=== PATIENT | male | born 1980 | race Caucasian/White ===

== ENCOUNTER 2016-12-02 19:37 | Observation (INO) ==
--- NOTE | 2016-12-02 20:37 | Emergency Department Note ---
Disposition Clinical Impression: Lower GI bleed Disposition: Admitted As Inpatient Condition: Good Time of Disposition: 23:49 GI Bleed HPI - General Chief complaint: ED GI Bleed Stated complaint: "Blood in Stool" Time Seen by Provider: 12/02/16 19:49 Source: patient Mode of arrival: ambulatory Limitations: no limitations Nursing Notes Reviewed: Yes Vital Signs Reviewed: Yes - History of Present Illness HPI Narrative: Patient is a 35-year-old male with no significant past medical history. He presents today due to GI bleeding. Patient had a routine colonoscopy [address] Carter as a routine screening. He had 3 polyps removed. Patient states that around 2 hours prior to arrival, he began having bright red liquid blood all movements. He has had 3 prior to arrival. He came to the ED for further evaluation. On the way in, he started having some mild shortness of breath felt like his heart was racing. Denies any other chest pain, nausea, vomiting, abdominal pain. Blood pressure stable on presentation. Patient also admits to taking ibuprofen recently due to tooth pain. However, he denies being on any blood thinners. - Related Data Home Medications Medication Instructions Recorded Confirmed Omeprazole [PriLOSEC] 20 mg PO DAILY 11/27/16 11/27/16 Allergies Allergy/AdvReac Type Severity Reaction Status Date / Time No Known Allergies Allergy Verified 12/02/16 19:43 Constitutional: Denies: fever Cardiovascular: Denies: chest pain, palpitations, dyspnea on exertion Respiratory: Denies: cough, dyspnea, wheezes Gastrointestinal: Reports: hematochezia. Denies: abdominal pain, nausea, vomiting Genitourinary: Denies: urgency, dysuria Musculoskeletal: Denies: back pain Integumentary: Denies: rash Neurological: Denies: headache, weakness, numbness, paresthesias Past Medical History - Past Medical History Attestation: Yes The following information was validated with the patient. Source: patient Medical history: Reports: GERD Surgical history: Reports: other Psychiatric history: Reports: no psych history - Social History Smoking Status: Never smoker Alcohol use: Reports: none Drug use: Reports: marijuana Physical Exam - General Limitations: no limitations General appearance: alert, in no apparent distress - Head Head exam: atraumatic, normocephalic, normal inspection - Eye Eye exam: Present: normal appearance, PERRL, EOMI - ENT ENT exam: normal exam, normal oropharynx, mucous membranes moist - Neck Neck exam: Present: normal inspection, full ROM, trachea midline - Chest Chest inspection: Present: normal inspection, symmetric chest wall rise - Respiratory Respiratory exam: Present: normal lung sounds bilaterally - Cardiovascular Cardiovascular exam: Present: normal rhythm, tachycardia, normal heart sounds - Abdominal Exam Abdominal exam: Present: soft, Non-Tender. Absent: tenderness, distention, guarding, rebound, rigidity - Extremities Exam Extremities exam: Present: normal inspection, full ROM. Absent: tenderness, pedal edema - Back Exam Back exam: Present: normal inspection, full ROM. Absent: tenderness - Neurological Exam Neurological exam: Present: alert, oriented X3 - Psychiatric Psychiatric exam: Present: normal affect, normal mood - Skin Skin exam: Present: warm, dry, intact, normal color Course Course Narrative: Patient was hypertensive on presentation. Also tachycardic around 115. The rest of vitals were within normal limits. Abdominal exam was benign. Will order CBC, BMP, type and screen, and CT of the abdomen and pelvis. After results, will contact Dr. Carter. 23:47 hemoglobin stable. BMP within normal limits. CT scan showed prominent wall thickening of the rectum. Dr. Carter was contacted. Vitals, presentation, history, results all discussed. He will perform sigmoidoscopy in the morning. Recommended admission for observation. Patient was accepted for observation by Dr. Rhoades. Continues to have stable vitals. NPO after midngith. Fluids started. Abdomen/Pelvis CT 12/02/16 20:18 IMPRESSION: Prominent wall thickening involving much of the rectum with heterogeneous attenuation along the taylor. No adjacent inflammatory change. No adenopathy. Findings may be infectious or inflammatory in etiology however recommend direct visualization with scope to exclude underlying mass. Erosions at the SI joints bilaterally. D/ / Tea Bernal MD / Tea Bernal MD Interpreting Provider: Tea Bernal MD Vital Signs Temperature 98 F 12/02/16 19:38 Pulse Rate 123 12/02/16 19:38 Respiratory Rate 20 12/02/16 19:38 Blood Pressure 151/90 12/02/16 19:38 O2 Sat by Pulse Oximetry 94 12/02/16 19:38 Temperature 98 F 12/02/16 19:38 Pulse Rate 111 12/02/16 23:30 Respiratory Rate 16 12/02/16 23:38 Blood Pressure 130/92 12/02/16 23:38 O2 Sat by Pulse Oximetry 95 12/02/16 23:30 Oxygen Delivery Oxygen Delivery Room Air GI Bleed - [facility] Narrative Medical decision making narrative: Patient was hypertensive on presentation. Also tachycardic around 115. The rest of vitals were within normal limits. Abdominal exam was benign. Will order CBC, BMP and CT of the abdomen and pelvis. After results, will contact Dr. Carter. 23:47 hemoglobin stable. BMP within normal limits. CT scan showed prominent wall thickening of the rectum. Dr. Carter was contacted. Vitals, presentation, history, results all discussed. He will perform sigmoidoscopy in the morning. Recommended admission for observation. Patient was accepted for observation by Dr. Rhoades. Continues to have stable vitals. NPO after midngith. Fluids started. - Medical Records Medical records reviewed: Yes I reviewed the patient's medical records. - Lab Data Lab results reviewed: Yes I reviewed the patient's lab results. Result diagrams: 12/02/16 20:43 12/02/16 20:43 Lab Results 12/02/16 12/02/16 12/02/16 Range/Units 20:43 20:43 22:46 WBC 10.1 (4.3-11.1) K/mcL RBC 4.88 (4.19-5.50) M/mcL Hgb 12.7 L (12.9-16.9) g/dL Hct 39.6 (37.5-50.1) % MCV 81.1 L (83.0-100.0) fL MCH 26.0 L (28.0-33.3) pg MCHC 32.1 (31.6-35.5) g/dL RDW 14.3 (11.5-14.5) % Plt Count 284 (140-400) K/mcL MPV 10.7 (9.4-12.4) fL Immature Gran % 0.3 (0-4) % Seg Neutrophils % 64.9 % Lymphocytes % 22.6 % Monocytes % 7.9 % Eosinophils % 3.6 % Basophils % 0.7 % Neutrophils # 6.6 (1.6-8.9) K/mcL Lymphocytes # 2.3 (0.6-4.6) K/mcL Monocytes # 0.8 (0.0-1.3) K/mcL Eosinophils # 0.4 (0.0-0.6) K/mcL Basophils # 0.1 (0.0-0.2) K/mcL Sodium 141 (136-145) mEq/L Potassium 3.8 (3.5-4.5) mEq/L Chloride 108 (98-109) mEq/L Carbon Dioxide 20 (19-29) mEq/L BUN 18 (8-26) mg/dL Creatinine 0.88 (0.72-1.25) mg/dL Est GFR ( Amer) > 60 (> 60) Est GFR (Non-Af Amer) > 60 (> 60) BUN/Creatinine Ratio 20 (6-26) Glucose 79 (70-99) mg/dL Calculated Osmolality 293 (280-300) Calcium 9.2 (8.6-10.8) mg/dL Blood Type A POSITIVE Antibody Screen NEGATIVE - Radiology Data Radiology results reviewed: Yes I reviewed the patient's radiology results. Abdomen/Pelvis CT 12/02/16 20:18 IMPRESSION: Prominent wall thickening involving much of the rectum with heterogeneous attenuation along the taylor. No adjacent inflammatory change. No adenopathy. Findings may be infectious or inflammatory in etiology however recommend direct visualization with scope to exclude underlying mass. Erosions at the SI joints bilaterally. D/ / Tea Bernal MD / Tea Bernal MD Interpreting Provider: Tea Bernal MD eck - Sera Situation: Demographics, MOA Background: Presenting Complaint, Relevant PMH, Meds, & Allergies Assessment: Vital Signs, Course and respsone to treatment, Exam Concerns, Patient/Family Expectation, Pertinant Lab Results, Outstanding Labs Recommendation: Barrier(s) to disposition, Recommendation based on pending studies, treatments, or consults [email or web address] Report Given to: Dr. santhosh Zamora Repor Time: 23:50 Attestation Statement - Attestation Attestation: I examined this patient and my medical decision-making was reviewed with the SERVICE CASHIER/PA/Advanced Practice Nurse/Resident Physician. I agree with the documented findings, disposition and treatment plan as described except to the extent set forth below.
[2016-12-02 20:52] LABS: Hematocrit 39.6 % (37.5-50.1); Hemoglobin 12.7 g/dL (12.9-16.9); Immature Granulocytes % 0.3 % (0-4); Lymphocytes % 22.6 %; Mean Corpuscular HGB Conc 32.1 g/dL (31.6-35.5); Mean Corpuscular Volume 81.1 fL (83.0-100.0); Mean Platelet Volume 10.7 fL (9.4-12.4); Platelet Count 284 K/mcL (140-400); Red Blood Count 4.88 M/mcL (4.19-5.50); Red Cell Distribution Width 14.3 % (11.5-14.5); Segmented Neutrophils % 64.9 %
[2016-12-02 20:53] LABS: Basophils # 0.1 K/mcL (0.0-0.2); Basophils % 0.7 %; Eosinophils # 0.4 K/mcL (0.0-0.6); Eosinophils % 3.6 %; Lymphocytes # 2.3 K/mcL (0.6-4.6); Monocytes # 0.8 K/mcL (0.0-1.3); Monocytes % 7.9 %; Neutrophils # 6.6 K/mcL (1.6-8.9)
[2016-12-02 21:02] LABS: BUN/Creatinine Ratio 20 (6-26); Blood Urea Nitrogen 18 mg/dL (8-26); Calcium 9.2 mg/dL (8.6-10.8); Carbon Dioxide 20 mEq/L (19-29); Chloride 108 mEq/L (98-109); Glucose 79 mg/dL (70-99); Osmolality,Calculated 293 (280-300); Potassium 3.8 mEq/L (3.5-4.5); Sodium 141 mEq/L (136-145); eGFR For African Americans > 60 (> 60); eGFR For Non-African Americans > 60 (> 60)
[2016-12-02] MEDS ORDERED: 0.9 % Sodium Chloride 500 ML IVC ONE (22:55)
[2016-12-02] MEDS ORDERED: Ketorolac 30 MG/ML VIAL IVP PRN (23:11)
[2016-12-02] MEDS ORDERED: *HR* Promethazine 25 MG/ML VIAL IVP PRN (23:11)
[2016-12-02] MEDS ORDERED: Naloxone 0.4 MG/ML INJ IVP PRN (23:11)
--- NOTE | 2016-12-02 23:38 | Internal Med History&Physical ---
Date of Encounter: 12/02/16 Time of Encounter: 23:00 Assessment and Plan (1) Rectal bleeding Current visit: Yes Status: Acute . (2) Status post colonoscopy with polypectomy Current visit: Yes Status: Acute . (3) Idiopathic proctitis Current visit: Yes Status: Acute . (4) Noninfective enterocolitis Current visit: Yes Status: Acute . Internal Medicine - H&P: HPI Chief complaint: Rectal bleeding Admitted From: Emergency Dept Plans for Post Hospital Care: Home History of present illness: Mr. Haque is a 35 year old male is admitted to [facility] via the emergency room when he presents with reports of blood in his stool. He presents no significant personal medical history of active or ongoing chronic medical concerns. However he has a family history of various cancers (father following diagnosis of throat cancer, brother recently underwent colonoscopy and polypectomy of precancerous lesions specifically). Scheduled a routine, screening colonoscopy was completed 4 days prior to admission. During the procedure 2 polyps were removed (5 mm bleeding polyp in the sigmoid colon and a 20 mm nonbleeding polyp at the rectum-sigmoid colon). Diverticulosis in the sigmoid colon was also documented as well as evidence for ileitis with aphthous ulcerations found in the terminal ileum. Immediate postoperative course was unremarkable. The patient however noted approximately 2 hours prior to his arrival to the emergency department with feeling of rectal urgency. When he had a movement of his bowels he found bright red blood in the stool. Due to the urgency he had 2 additional rings each with blood. Came to the emergency room for further evaluation. He had some anxiety with these events associated with mild shortness of breath and racing heart. He denied any prodromal or associated complaints of chest pain abdominal pain nausea vomiting diarrhea constipation complaints dysuria frequency hematuria reverse chills or sweats. He denied taking any daily or intermittent blood thinning agents. However due to very painful dental and periodontoid disease admits to taking ibuprofen otc excessively on a daily basis. Findings in the ED noted a temperature of 98 degrees pulse 123 respirations 20 blood pressure 151/90 O2 saturation 96% on room air. CT of the abdomen and pelvis with contrast demonstrated prominent wall thickening involving much of the rectum with heterogeneous attenuation along taylor. No adjacent inflammatory change was seen. No adenopathy. Findings were suggestive of infectious versus inflammatory. Further assessment recommended. Erosions of the SI joints were noted incidentally. No free fluid collection no evidence of pneumatosis seen. Preliminary impression is that of postprocedural rectal bleeding/hematochezia. Painless. Patient had colonoscopic findings existing possible regional ileitis and the question of an underlying inflammatory bowel syndrome. For the episodes of bright red blood per rectum bringing him to the emergency room the abdomen has been quiescent. We will continue treatments will proceed comprehensively with an anticipation that the patient will be taken once again to the endoscopic Center for further assessment and disposition. The patient was visited and interviewed and examined. Cumulative laboratory and radiographic data base will be considered and discussed. Pertinent ancillary medical records including ECW and PCI documentation when available was reviewed and considered. Given the patient's presenting concerns, past medical history, clinical findings and symptoms, he is admitted at this time will undergo further evaluation and disposition. Orders were written as per Computerized physician sales order coordinator system.......................................................................... .................... Consultative opinion and will be sought as clinical circumstances justify. Pain management needs will be addressed. Laboratory/radiographic data base will be updated as appropriate. Studies include:pt/inr, aptt, cardiac injury panel, BNP, UA, metabolic and hematologic panel, magnesium, phosphorus, ionized calcium, thyroid panel, lipid profile, A1c , C-peptide, CRP, sedimentation rate, blood gas, lactic acid, serologies, etc. Precautions: Aspiration, fall, delirium protocol/surveillance initiated. Telemetry with continuous hemodynamic monitoring and pulse oximetry initiated. Empiric antibiotic coverage: pending diagnostics/culture data. Special studies: CT abd/pelvis, chest x-ray, telemetry, EKG. Pulmonary toilet: Incentive spirometry. PRN: aerosol bronchodilator, mucolytic, antitussive, supplemental oxygen. Corticosteroid therapy PRN. CPAP/BiPAP supplemental oxygen PRN. Aerosol Mucomyst therapy PRN. Fluid and electrolyte repletion efforts will proceed. Careful attention to fluid balance and renal recovery will be emphasized. Avoidance of nephrotoxic exposure and adverse drug drug interaction in the setting of impaired renal function will be monitored closely. Acute coronary syndrome protocol/surveillance initiated. DVT and PUD prophylaxis initiated: PPI therapy, intermittent pneumatic cuffs/ TEDs. Early ambulation will be encouraged. Immunization updates recommended. Influenza and pneumococcal vaccinations as part of ongoing preventative healthcare recommendations strongly recommended. Smoking cessation counseling briefly addressed. Patient is a nonsmoker. Advanced care directive discussion briefly addressed. Patient does not declare any healthcare restrictions at this time. Cardiovascular risk appraisal and cardiovascular risk reduction efforts will be emphasized. Physical /occupational therapy may be counseled to evaluate patient's functional capacity and progress mobility if circumstances justify. Nutrition/dietary education counseling may be considered as circumstances justify. Outpatient medication schedules will be reviewed, confirmed and facilitated as appropriate. Reconciliation of home treatments including adjustments, substitutions and reintroduction into the treatment regimen will address necessary maintenance therapies for chronic pre-existing medical conditions. Plan of care has been reviewed and discussed in detail with the patient. Questions addressed. Hospital course dictated by clinical findings, treatment response and potential consultative interventions. Patient is a risk for further acute clinical decline due to his chief complaints and comorbid conditions. Condition is serious. Prognosis is guarded. CODE STATUS is full. 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 Colonoscopy. Tonsillectomy adenoidectomy.) - Social History Smoking Status: Never smoker Alcohol use: none Drug use: marijuana, other Occupational status: unemployed Current living situation: Home - Independent, Home Activity Level: Independent ambulation, Mostly sedentary Recent Out of Country Travel Within the Last 8 Weeks: No Exposure or Possible Exposure to Illness During Travel: No Internal Medicine - H&P: Meds Omeprazole [PriLOSEC] 20 mg PO DAILY 11/27/16 [History] Allergies No Known Allergies Allergy (Verified 12/02/16 19:43) All Systems PM: A 10-system review of systems was performed and is negative for pertinent findings except as documented above in the HPI. Allergies Allergy/AdvReac Type Severity Reaction Status Date / Time No Known Allergies Allergy Verified 12/02/16 19:43 Patient Problems (Last Updated 12/02/16 @ 23:40 by Jomar Rhoades MD) Rectal bleeding (Acute Medical) K62.5 - Constitutional Constitutional: as per HPI, no chills, no fever(s), no night sweats - EENT Eyes: as per HPI, no change in vision, no discharge, no pain, no photophobia Ears: as per HPI, no ear discharge, no ear pain, no tinnitus Nose, mouth and throat: as per HPI, bleeding gums, dental pain, dry mouth, mouth pain, other, no dysphagia, no nasal discharge, no neck pain, no sore throat - Cardiovascular Cardiovascular ROS IM: as per HPI, no chest pain, no diaphoresis, no dyspnea, no lightheadedness, no palpitations, no syncope - Respiratory Respiratory: as per HPI, no cough, no dyspnea, no wheezing, no excessive phlegm production - Gastrointestinal Gastrointestinal: as per HPI, cramping, hematochezia, other, no abdominal pain, no coffee ground emesis, no constipation, no diarrhea, no fecal incontinence, no hematemesis, no melena, no nausea, no vomiting - Genitourinary Genitourinary ROS male: as per HPI - Musculoskeletal Musculoskeletal ROS IM: as per HPI, no numbness, no tingling - Integumentary Integumentary IM: as per HPI, no rash, no unusual bruising - Neurological Neurological ROS: as per HPI, no confusion, no convulsions, no focal weakness, no numbness, no tingling, no tremor(s) - Psychiatric Psychiatric: as per HPI - Endocrine Endocrine IM: as per HPI - Hematologic/Lymphatic Hematologic/Lymphatic: as per HPI, no easy bruising - Allergic/Immunologic Allergic/Immunologic: as per HPI - Constitutional Vitals: Temp Pulse Resp BP Pulse Ox 98 F 111 16 130/92 95 12/02/16 19:38 12/02/16 23:30 12/02/16 23:30 12/02/16 23:30 12/02/16 23:30 Vital Signs Temp Pulse Resp BP Pulse Ox 12/02/16 23:38 16 130/92 12/02/16 23:30 111 16 130/92 95 12/02/16 21:00 111 16 166/93 95 12/02/16 20:01 96 12/02/16 19:38 98 F 123 20 151/90 94 Intake and Output 12/02/16 12/02/16 12/02/16 07:59 15:59 23:59 Other: Weight 157.85 kg Patient Weight 12/02/16 23:59 Weight 157.85 kg General appearance: Present: cooperative, A&O X 3, morbidly obese, no acute distress, answers questions appropriately - Head Head exam: Present: atraumatic, normal inspection, normocephalic - Eye Eye exam: Present: EOMI, PERRL, conjuntiva pink, sclera anicteric Pupils: Present: normal accommodation, PERRL - ENT ENT exam: Present: mucous membranes moist, normal external ear exam, normal oropharynx. Absent: normal exam (Very poor dentition with some malaligned teeth and periodontal disease.) - Neck Neck exam general surgery: Present: full ROM, supple, trachea midline. Absent: lymphadenopathy, nuchal rigidity - Respiratory Respiratory exam: Present: decreased breath sounds, CTAB. Absent: accessory muscle use, rales, rhonchi, wheezes - Cardiovascular Cardiovascular exam: Present: distant heart sounds, RRR, +S1, +S2. Absent: diastolic murmur, gallop, rubs, systolic murmur - GI/Abdominal GI/Abdominal exam: Present: normal bowel sounds, soft, no peritoneal signs. Absent: distended, guarding, mass, tenderness - Extremities Exam Extremities exam: Present: full ROM, warm, radial pulses palpable and symetrical. Absent: calf tenderness, cyanotic, pedal edema - Neurological Exam Neurological exam: Present: alert, CN II-XII intact, oriented X3, no focal deficits. Absent: pronater drift, facial droop, speech deficit - Psychiatric Psychiatric exam: Present: normal affect, normal mood - Skin Skin exam: Present: dry, intact, warm. Absent: petechiae, rash, urticaria, vesicles Internal Med - H&P Results - Labs CBC & Chem 7: 12/02/16 20:43 12/02/16 20:43 Labs: Short CBC 12/02/16 Range/Units 20:43 WBC 10.1 (4.3-11.1) K/mcL Hgb 12.7 L (12.9-16.9) g/dL Hct 39.6 (37.5-50.1) % Plt Count 284 (140-400) K/mcL Neutrophils # 6.6 (1.6-8.9) K/mcL BMP 12/02/16 Range/Units 20:43 Sodium 141 (136-145) mEq/L Potassium 3.8 (3.5-4.5) mEq/L Chloride 108 (98-109) mEq/L Carbon Dioxide 20 (19-29) mEq/L BUN 18 (8-26) mg/dL Creatinine 0.88 (0.72-1.25) mg/dL Glucose 79 (70-99) mg/dL Calcium 9.2 (8.6-10.8) mg/dL Abnormal lab results Hgb 12.7 g/dL (12.9-16.9) L 12/02/16 20:43 MCV 81.1 fL (83.0-100.0) L 12/02/16 20:43 MCH 26.0 pg (28.0-33.3) L 12/02/16 20:43 Laboratory Last Values WBC 10.1 K/mcL (4.3-11.1) 12/02/16 20:43 RBC 4.88 M/mcL (4.19-5.50) 12/02/16 20:43 Hgb 12.7 g/dL (12.9-16.9) L 12/02/16 20:43 Hct 39.6 % (37.5-50.1) 12/02/16 20:43 MCV 81.1 fL (83.0-100.0) L 12/02/16 20:43 MCH 26.0 pg (28.0-33.3) L 12/02/16 20:43 MCHC 32.1 g/dL (31.6-35.5) 12/02/16 20:43 RDW 14.3 % (11.5-14.5) 12/02/16 20:43 Plt Count 284 K/mcL (140-400) 12/02/16 20:43 MPV 10.7 fL (9.4-12.4) 12/02/16 20:43 Immature Gran % 0.3 % (0-4) 12/02/16 20:43 Seg Neutrophils % 64.9 % 12/02/16 20:43 Lymphocytes % 22.6 % 12/02/16 20:43 Monocytes % 7.9 % 12/02/16 20:43 Eosinophils % 3.6 % 12/02/16 20:43 Basophils % 0.7 % 12/02/16 20:43 Neutrophils # 6.6 K/mcL (1.6-8.9) 12/02/16 20:43 Lymphocytes # 2.3 K/mcL (0.6-4.6) 12/02/16 20:43 Monocytes # 0.8 K/mcL (0.0-1.3) 12/02/16 20:43 Eosinophils # 0.4 K/mcL (0.0-0.6) 12/02/16 20:43 Basophils # 0.1 K/mcL (0.0-0.2) 12/02/16 20:43 Sodium 141 mEq/L (136-145) 12/02/16 20:43 Potassium 3.8 mEq/L (3.5-4.5) 12/02/16 20:43 Chloride 108 mEq/L (98-109) 12/02/16 20:43 Carbon Dioxide 20 mEq/L (19-29) 12/02/16 20:43 BUN 18 mg/dL (8-26) 12/02/16 20:43 Creatinine 0.88 mg/dL (0.72-1.25) 12/02/16 20:43 Est GFR ( Amer) > 60 (> 60) 12/02/16 20:43 Est GFR (Non-Af Amer) > 60 (> 60) 12/02/16 20:43 BUN/Creatinine Ratio 20 (6-26) 12/02/16 20:43 Glucose 79 mg/dL (70-99) 12/02/16 20:43 Calculated Osmolality 293 (280-300) 12/02/16 20:43 Calcium 9.2 mg/dL (8.6-10.8) 12/02/16 20:43 - Impressions Abdomen/Pelvis CT 12/02/16 20:18 IMPRESSION: Prominent wall thickening involving much of the rectum with heterogeneous attenuation along the taylor. No adjacent inflammatory change. No adenopathy. Findings may be infectious or inflammatory in etiology however recommend direct visualization with scope to exclude underlying mass. Erosions at the SI joints bilaterally. D/ / Tea Bernal MD / Tea Bernal MD Interpreting Provider: Tea Bernal MD - Attending Attestation Allergies No Known Allergies Allergy (Verified 12/02/16 19:43) Home Medications Medication Instructions Recorded Confirmed Type Omeprazole [PriLOSEC] 20 mg PO DAILY 11/27/16 11/27/16 History I & O 11/29/16 11/30/16 12/01/16 12/02/16 23:59 23:59 23:59 23:59 Weight 157.85 kg Medications Acetaminophen (Tylenol) 650 mg PO Q6HR PRN PRN Reason: Mild Pain (1-3) Stop: 06/03/17 23:12 Docusate Sodium (Colace) 100 mg PO BID PRN PRN Reason: Constipation Stop: 06/03/17 23:12 Hydromorphone HCl (Dilaudid) 0.5 mg IVP Q4HR PRN PRN Reason: Severe Pain (7-10) Stop: 06/03/17 23:12 Sodium Chloride (0.9 % Sodium Chloride) 1,000 mls @ 125 mls/hr IVC .Q8H MAVIS Stop: 06/03/17 23:01 Ketorolac Tromethamine (Toradol) 15 mg IVP Q6HR PRN PRN Reason: Moderate Pain (4-6) Stop: 12/07/16 23:12 Naloxone HCl (Narcan) 0.4 mg IVP Q2MIN PRN PRN Reason: Opioid Reversal Stop: 06/03/17 23:12 Pantoprazole Sodium (Protonix) 40 mg IVP DAILY MAVIS Stop: 06/03/17 23:16 Promethazine HCl (Phenergan) 12.5 mg IVP Q6HR PRN PRN Reason: Nausea And Vomiting Stop: 06/03/17 23:12 Discontinued Medications Acetaminophen (Tylenol) 1,000 mg PO ONCE ONE Stop: 12/02/16 20:44 Last Admin: 12/02/16 20:58 Dose: 1,000 mg Sodium Chloride (0.9 % Sodium Chloride) 500 mls @ 1,875 mls/hr IVC .Q16M ONE Stop: 12/02/16 23:10 Last Admin: 12/02/16 23:10 Dose: 1,875 mls/hr Nursing Notes 12/02/16 20:43 Transport Report by Abisai Lyons Date: 12/02/16 Transport Method: Stretcher No Known Allergies Allergy (Verified 12/02/16 19:43) Resuscitation Status 12/02/16 20:18 CT abd pelvis w iv no oral [CT] Stat Mode Of Transportation: Stretcher Quantity: 1 Reason For Exam: lower GI bleed. Order Doctor: Matthew Vasquez Exam Performed At:: [facility] Allergic to Contrast: No Oxygen: Mental Status: Fall Risk: Isolation: Nurse Required for Transport: No ___ Yes Limb Restrictions: No ___ Yes Behavioral issue/Risk for Elopement: No ___ Yes Telemetry Room Notification: Destination: MRI XRAY STRESS ULTRASOUND CT DIALYSIS ENDO OTHER: Depart Time: Nurse: Transporter: Arrive Time: Received by: ___ Return Time: Nurse: Transporter: ] Initialized on 12/02/16 20:43 - END OF NOTE Orders 12/02/16 20:18 CT abd pelvis w iv no oral [CT] Stat Mode Of Transportation: Stretcher Quantity: 1 Reason For Exam: lower GI bleed. Order Doctor: Matthew Vasquez Exam Performed At:: [facility] to Contrast: No 12/02/16 20:43 BMP [Basic Metabolic Panel] Stat Comment: Specimen: Send someone from the department to collect Complete Blood Count [HEME] Stat Comment: Specimen: Send someone from the department to collect Acetaminophen [Tylenol] 1,000 mg PO ONCE ONE 12/02/16 22:14 Consult to Gastroenterology [CONS] Routine Consulting Provider: Gastroenterology Leonela Reason for Consult: lower GI bleed s/p polyp removal 4 days ago Time Notified: 22:14 Call Completed: Yes 12/02/16 22:[address] Stat Comment: Reason for Visit: lower GI bleed. 12/02/16 22:46 Type and Screen [BBK] Stat BBK Wristband Number: [id number] Comment: Specimen: Send someone from the department to collect 12/02/16 22:55 0.9 % Sodium Chloride 500 ml IVC 1,875 mls/hr 12/02/16 23:00 0.9 % Sodium Chloride 1,000 ml IVC 125 mls/hr 12/02/16 23:11 Bed rest w/bathroom privileges [RC] .PRN Measure intake and output [RC] QSHIFT Measure weight [RC] DAILY Peripheral IV [RC] CONT Placement to Observation Routine Physician Instructions: Reason for Visit: Rectal bleeding Is VTE Prophylaxis Indicated?: Yes Vital Signs Assessment [RC] Q4H Acetaminophen [Tylenol] 650 mg PO Q6HR PRN Docusate [Colace] 100 mg PO BID PRN HYDROmorphone (PF) [Dilaudid] 0.5 mg IVP Q4HR PRN Ketorolac [Toradol] 15 mg IVP Q6HR PRN Naloxone [Narcan] 0.4 mg IVP Q2MIN PRN Promethazine [Phenergan] 12.5 mg IVP Q6HR PRN Resuscitation Status: Active [RES] Routine Comment: Resuscitation Status: Full Code 12/02/16 23:15 Pantoprazole [Protonix] 40 mg IVP DAILY 12/02/16 23:16 KAROL Olvera [Apply anti-embolic stockings] [RC] .ONCE 12/03/16 00:01 NPO Diet Diet Modifications: ice chips...sips of water w/meds... 12/03/16 04:00 Activated Partial Thrombo Time [COAG] AM 0400 Comment: Specimen: Send someone from the department to collect Complete Blood Count [HEME] AM 0400 Comment: Specimen: Send someone from the department to collect Comprehensive Metabolic Panel AM 0400 Comment: Specimen: Send someone from the department to collect Magnesium AM 0400 Comment: Specimen: Send someone from the department to collect Phosphorous AM 0400 Comment: Specimen: Send someone from the department to collect Prothrombin Time INR [COAG] AM 0400 Comment: Specimen: Send someone from the department to collect Urinalysis reflex Microscopic [URIN] AM 0400 Comment: Specimen: Pre-Collection Label Vital Signs Temp Pulse Resp BP Pulse Ox 12/02/16 23:30 111 16 130/92 95 12/02/16 21:00 111 16 166/93 95 12/02/16 20:01 96 12/02/16 19:38 98 F 123 20 151/90 94 Laboratory Results 12/02/16 12/02/16 Range/Units 20:43 20:43 WBC 10.1 (4.3-11.1) K/mcL RBC 4.88 (4.19-5.50) M/mcL Hgb 12.7 L (12.9-16.9) g/dL Hct 39.6 (37.5-50.1) % MCV 81.1 L (83.0-100.0) fL MCH 26.0 L (28.0-33.3) pg MCHC 32.1 (31.6-35.5) g/dL RDW 14.3 (11.5-14.5) % Plt Count 284 (140-400) K/mcL MPV 10.7 (9.4-12.4) fL Immature Gran % 0.3 (0-4) % Seg Neutrophils % 64.9 % Lymphocytes % 22.6 % Monocytes % 7.9 % Eosinophils % 3.6 % Basophils % 0.7 % Neutrophils # 6.6 (1.6-8.9) K/mcL Lymphocytes # 2.3 (0.6-4.6) K/mcL Monocytes # 0.8 (0.0-1.3) K/mcL Eosinophils # 0.4 (0.0-0.6) K/mcL Basophils # 0.1 (0.0-0.2) K/mcL Sodium 141 (136-145) mEq/L Potassium 3.8 (3.5-4.5) mEq/L Chloride 108 (98-109) mEq/L Carbon Dioxide 20 (19-29) mEq/L BUN 18 (8-26) mg/dL Creatinine 0.88 (0.72-1.25) mg/dL Est GFR ( Amer) > 60 (> 60) Est GFR (Non-Af Amer) > 60 (> 60) BUN/Creatinine Ratio 20 (6-26) Glucose 79 (70-99) mg/dL Calculated Osmolality 293 (280-300) Calcium 9.2 (8.6-10.8) mg/dL Assessments/Treatments Cardiac monitoring Start: 12/02/16 19: 42 Freq: Status: Complete Document 12/02/16 20:00 [facility] (Rec: 12/02/16 20:01 [id number] Cardiac Monitoring Heart Rate 116 Monitoring Method Bedside Rhythm Sinus Tachycardia ED GI Bleed Assessment Start: 12/02/16 19: 42 Freq: Status: Complete Document 12/02/16 19:57 [facility] (Rec: 12/02/16 20:00 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 Carter . Pt's had 3 bloody BMs x couple hours. Pt reports taking a lot of Ibuprofen d/t dental pain. RT Continuous Pulse Oximetry Start: 12/02/16 19: 42 Freq: Status: Complete Document 12/02/16 20:01 [facility] (Rec: 12/02/16 20:01 [facility] [id number]) Saline lock insertion/management Start: 12/02/16 19: 42 Freq: Status: Complete Document 12/02/16 20:42 [facility] (Rec: 12/02/16 20:43 [facility] [id number]) IV Insertion/Site Assessment IV Attempt 1 Successful Successful Blood drawn and sent to Lab Yes Left Antecubital IV Established WHEEL INSPECTOR No Date of Insertion 12/02/16 Time of Insertion 20:42 Reason for IV Insertion Replace Lost Fluids Maintain Electrolyte Balance Provide Access for IV Medication(s) Provide Access for Blood Provide Access for Emergency IV Catheter Type Peripheral IV Gauge (gauge) 18 Site Observation Patent Dressing Applied Window Dressing Dry/Intact Patient Tolerance Tolerated Well Supplemental oxygen titration Start: 12/02/16 19: 42 Freq: Status: Complete Document 12/02/16 20:01 [facility] (Rec: 12/02/16 20:01 [facility] [id number]) Oxygen Adminstration Oxygen Saturation 96 Oxygen Delivery Method Room Air Triage Start: 12/02/16 19: 38 Freq: Status: Complete Document 12/02/16 19:38 [facility] (Rec: 12/02/16 19:42 [facility] [id number]) Triage Chief Complaint triage ED GI Bleed Patient Stated Complaint bloody diarrhea EVONNE 3 Onset (ago) hour(s) Description of Symptoms States that he had a colonoscopy on by Dr Carter and had 3 polyps removed and was doing fine until 3 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 General Appearance alert in no apparent distress Mode of arrival ambulatory Source patient Ebola Risk: Travel/Contact With Anyone No From Affected Area/s Has Patient Experienced Ebola Symptoms No Temperature (97.6 F-99.6 F) 98 F Temperature Source Oral Pulse Rate 123 Respiratory Rate 20 Blood Pressure 151/90 O2 Sat by Pulse Oximetry 94 Height 1.83 m Weight 157.85 kg Weight Measurement Method Stated by Patient Pain Scale 0 Pain Scale Used Standard (1-10) Medical history GERD Male surgical history Tonsillectomy Additional surgical history PMH cardiac cath-negative tonsillectomy, 7 wound debridiments Psychiatric history no psych history Smoking Status Never smoker Alcohol Use none Drug Use marijuana Patient resides with/at Significant Other Safety Concerns Feels Safe At This Time Do you currently feel hopless, have No thoughts of self harm, or thoughts of harming others History of fall in last 14 days? No Influenza vaccine up to date No Tetanus UTD yes Vital Signs Assessment Start: 12/02/16 19: 42 Freq: Status: Active Document 12/02/16 21:00 [facility] (Rec: 12/02/16 21:01 [facility] [id number]) ED Vital Signs Pain Reported Pain Reported Pain Scale 7 Pain Scale Used Standard (1-10) Blood Pressure 166/93 Blood Pressure Location Right Arm Source Automatic Cuff Pulse Rate 111 Respiratory Rate 16 Depth Normal Effort Normal for Patient Spontaneous Non-Labored Pulse Oximetry 95 Oxygen Delivery Room Air Vital Signs Assessment Start: 12/02/16 23: 11 Freq: Q4H Status: Active Document 12/02/16 23:30 [facility] (Rec: 12/02/16 23:31 [facility] [id number]) ED Vital Signs Pain Reported No Pain Reported Blood Pressure 130/92 Blood Pressure Location Right Arm Source Automatic Cuff Pulse Rate 111 Respiratory Rate 16 Depth Normal Effort Normal for Patient Spontaneous Non-Labored Pulse Oximetry 95 Oxygen Delivery Room Air Discharge Information ED Provider: Yariel Manuel Status: Admitted Observation Patient Time Seen by Provider: 12/02/16 19:49 Condition: Triaged At: Other ED Providers: Marilou العراقي,Tg Carter,Favio Steven Emergency Discharge Date/Time: Emergency Discharge Disposition: Clinical Impression Emergency Discharge Comment: Admit Intervention Last Done ED GI Bleed Assessment 12/02/16 19:57 Query Result GI Bleed Symptoms/Complaint Blood Streaked Stool GI Bleed Onset couple hours [employer] INS[employer]OR GI Bleed Consistency Constant GI Bleed Associated Symptoms Denies Other Symptoms GI Bleed Treatments Prior to Arrival None Level Of Consciousness Awake Alert Appropriate Patient Orientation Person Place Time Name Age Date of Day of Month Day of Week Month Year Time of Day Respiratory Depth Normal Respiratory Effort Normal for Patient Spontaneous Non-Labored Respiratory Pattern Regular Abdomen Description Soft Non-Tender Nausea/Vomiting Presence None ED Comment Pt had colonoscopy & [address] Carter . Pt's had 3 bloody BMs x couple hours. Pt reports taking a lot of Ibuprofen d/t dental pain. ED Discharge Assessment Observation Discharge Date/Time: Observation Discharge Disposition: Observation Discharge Comment: Instructions: Stand-Alone Forms: Prescriptions: Visit Report - Forms: - Referrals: Radiology Results Abdomen/Pelvis CT 12/02/16 20:18
[2016-12-03] MEDS: Pantoprazole 40 MG VIAL IVP SCH ×2 (00:58→08:26)
[2016-12-03] MEDS: 0.9 % Sodium Chloride 1,000 ML IVC SCH ×4 (00:58→21:40)
[2016-12-03 04:29] LABS: Basophils # 0.1 K/mcL (0.0-0.2); Basophils % 0.7 %; Eosinophils # 0.3 K/mcL (0.0-0.6); Eosinophils % 3.8 %; Hematocrit 34.7 % (37.5-50.1); Immature Granulocytes % 0.5 % (0-4); Lymphocytes # 2.6 K/mcL (0.6-4.6); Lymphocytes % 30.9 %; Mean Corpuscular HGB Conc 31.4 g/dL (31.6-35.5); Mean Corpuscular Hemoglobin 25.8 pg (28.0-33.3); Mean Corpuscular Volume 82.2 fL (83.0-100.0); Mean Platelet Volume 10.6 fL (9.4-12.4); Monocytes # 0.7 K/mcL (0.0-1.3); Monocytes % 7.8 %; Neutrophils # 4.7 K/mcL (1.6-8.9); Platelet Count 230 K/mcL (140-400); Red Blood Count 4.22 M/mcL (4.19-5.50); Red Cell Distribution Width 14.5 % (11.5-14.5); Segmented Neutrophils % 56.3 %
[2016-12-03 04:33] LABS: INR 1.1; Prothrombin Time 12.4 Seconds (9.4-12.1)
[2016-12-03 04:36] LABS: Activated Partial Thrombo Time 31.4 Seconds (26.0-36.0)
[2016-12-03 04:47] LABS: Alanine Aminotransferase 26 Units/L (0-55); Albumin 2.7 g/dL (3.5-5.0); Albumin/Globulin Ratio 0.8 (1.1-2.2); Alkaline Phosphatase 72 Units/L (38-126); Aspartate Amino Transferase 17 Units/L (5-34); BUN/Creatinine Ratio 23 (6-26); Bilirubin,Total 0.3 mg/dL (0.2-1.2); Blood Urea Nitrogen 18 mg/dL (8-26); Calcium 8.2 mg/dL (8.6-10.8); Carbon Dioxide 19 mEq/L (19-29); Chloride 111 mEq/L (98-109); Globulin 3.2 g/dL (2.4-3.5); Glucose 95 mg/dL (70-99); Magnesium 1.8 mg/dL (1.6-2.6); Osmolality,Calculated 292 (280-300); Phosphorous 3.5 mg/dL (2.3-4.7); Potassium 3.7 mEq/L (3.5-4.5); Sodium 140 mEq/L (136-145); Total Protein 5.9 g/dL (6.0-8.3); eGFR For African Americans > 60 (> 60); eGFR For Non-African Americans > 60 (> 60)
[2016-12-03 04:50] LABS: Hemoglobin 10.9 g/dL (12.9-16.9)
[2016-12-03 04:52] LABS: Bilirubin,Urine Negative (Negative); Blood,Urine Negative (Negative); Clarity,Urine Clear (Clear); Color,Urine Yellow (Yellow); Glucose,Urine (UA) Normal (Normal); Ketones,Urine Negative (Negative); Leukocyte Esterase,Urine Negative (Negative); Nitrite,Urine Negative (Negative); Protein,Urine Negative (Neg-Trace); Specific Gravity,Urine > 1.030 (1.010-1.025); Urobilinogen,Urine Normal (Normal)
--- NOTE | 2016-12-03 09:29 | Internal Med Progress Note ---
<Joyce Tucker - Last Filed: 12/03/16 10:23> Date of Encounter: 12/03/16 Time of Encounter: 09:29 - Assessment and plan (1) Lower GI bleed Current Visit: Yes Status: Acute Assessment and plan: Patient had colonoscopy 11/27/16 for routine screening secondary to [facility] colon polyps 2 polyps were removed, scattered mild inflammation with edema and aphthous ulcerations noted in the terminal ileium (biopsies taken) -Tubulovillous adenoma, Tubular adenoma of polyps per path report -Terminal ileum, endoscopic biopsy: Active enteritis, Granulomas, dysplasia, or viral cytopathic effect. 5 episodes of bloody diarrhea since admission. VSS Hgb decreased to 10.9 from 12.7; Hct 34.7 INR 1.1 Plan: -Sigmoidoscopy today -Continue to monitor H/H -GI onboard, appreciate their recommendations. (2) Ileitis Current Visit: Yes Status: Acute Assessment and plan: Active enteritis with prominent wall thickening/edema. Infectious vs inflammatory etiology Plan: -Sigmoidoscopy today, await GI recommendations. -Start cipro and flagyl (3) Status post colonoscopy with polypectomy Current Visit: Yes Status: Acute (4) GERD (gastroesophageal reflux disease) Current Visit: Yes Status: Acute - Subjective Interval history: Patient seen and examined. He notes that he has had 3 episodes of bloody stool last night and 2 this morning. He notes that the stool is liquid and while he is defecating he experiences palpitations and shortness of breath. Immediately afterward he has gas pains in is lower abdomen, more centrally located and pain in his groin bilaterally.He also experiences occasional nausea. He denies vomiting or cp/palpitations/sob while at rest. - Constitutional Vitals: Temp Pulse Resp BP Pulse Ox 97.6 F 84 16 136/76 96 12/03/16 07:14 12/03/16 07:14 12/03/16 07:14 12/03/16 07:14 12/03/16 07:14 General appearance: Present: cooperative, A&O X 3, morbidly obese, no acute distress, answers questions appropriately - Eye Eye exam: Present: PERRL, conjuntiva pink, sclera anicteric Pupils: Present: PERRL - Respiratory Respiratory exam: Present: CTAB. Absent: accessory muscle use, rales, rhonchi, wheezes - Cardiovascular Cardiovascular exam: Present: RRR, +S1, +S2. Absent: diastolic murmur, gallop, rubs, systolic murmur - GI/Abdominal GI/Abdominal exam: Present: normal bowel sounds, soft, tenderness (lower central abdomen). Absent: distended, firm, guarding - Extremities Exam Extremities exam: Present: warm, radial pulses palpable and symetrical. Absent : calf tenderness, cyanotic, pedal edema - Neurological Exam Neurological exam: Present: alert, oriented X3, no focal deficits. Absent: motor sensory deficit, facial droop, speech deficit - Psychiatric Psychiatric exam: Present: normal affect, normal mood - Skin Skin exam: Present: dry, intact. Absent: cyanosis, diaphoretic Internal Medicine: Result - Labs CBC & Chem 7: 12/03/16 04:10 12/03/16 04:10 Labs: Short CBC 12/03/16 Range/Units 04:10 WBC 8.3 (4.3-11.1) K/mcL Hgb 10.9 L D (12.9-16.9) g/dL Hct 34.7 L (37.5-50.1) % Plt Count 230 (140-400) K/mcL Neutrophils # 4.7 (1.6-8.9) K/mcL BMP 12/03/16 04:10 Sodium 140 Potassium 3.7 Chloride 111 H Carbon Dioxide 19 BUN 18 Creatinine 0.78 Glucose 95 Calcium 8.2 L Liver Function 12/03/16 Range/Units 04:10 Total Bilirubin 0.3 (0.2-1.2) mg/dL AST 17 (5-34) Units/L ALT 26 (0-55) Units/L Alkaline Phosphatase 72 (38-126) Units/L Albumin 2.7 L (3.5-5.0) g/dL Urine 12/03/16 Range/Units 04:00 Urine Color Yellow (Yellow) Urine Clarity Clear (Clear) Urine pH 6.0 (5.0-8.0) pH Units Ur Specific [place] > 1.030 H (1.010-1.025) Urine Protein Negative (Neg-Trace) mg/dL Urine Glucose (UA) Normal (Normal) mg/dL - ABG Interpretation ABG results: PT/INR, D-dimer PT 12.4 Seconds (9.4-12.1) H 12/03/16 04:10 - VTE Documentation of Mechanical Device: Graduated compression elastic hosiery Consult Discharge Plan - Plan Referrals: NO,PCP [Primary Care Provider] - <Franky Brunson H - Last Filed: 12/03/16 10:27> Date of Encounter: 12/03/16 - Constitutional Vitals: Temp Pulse Resp BP Pulse Ox 97.6 F 84 16 136/76 96 12/03/16 07:14 12/03/16 07:14 12/03/16 07:14 12/03/16 07:14 12/03/16 07:14 Internal Medicine: Result - Labs CBC & Chem 7: 12/03/16 04:10 12/03/16 04:10 Labs: Short CBC 12/03/16 Range/Units 04:10 WBC 8.3 (4.3-11.1) K/mcL Hgb 10.9 L D (12.9-16.9) g/dL Hct 34.7 L (37.5-50.1) % Plt Count 230 (140-400) K/mcL Neutrophils # 4.7 (1.6-8.9) K/mcL BMP 12/03/16 04:10 Sodium 140 Potassium 3.7 Chloride 111 H Carbon Dioxide 19 BUN 18 Creatinine 0.78 Glucose 95 Calcium 8.2 L Liver Function 12/03/16 Range/Units 04:10 Total Bilirubin 0.3 (0.2-1.2) mg/dL AST 17 (5-34) Units/L ALT 26 (0-55) Units/L Alkaline Phosphatase 72 (38-126) Units/L Albumin 2.7 L (3.5-5.0) g/dL Urine 12/03/16 Range/Units 04:00 Urine Color Yellow (Yellow) Urine Clarity Clear (Clear) Urine pH 6.0 (5.0-8.0) pH Units Ur Specific [place] > 1.030 H (1.010-1.025) Urine Protein Negative (Neg-Trace) mg/dL Urine Glucose (UA) Normal (Normal) mg/dL - ABG Interpretation ABG results: PT/INR, D-dimer PT 12.4 Seconds (9.4-12.1) H 12/03/16 04:10 - Attending Attestation acute blood loss anemia 2ry to acute lower GI bleed after polypectomy/prior colonoscopy monitor CBC q6h, consider transfusions high risk due to bleeding fall precautions I examined this patient and my medical decision-making was reviewed with the ANALYSIS INTERN/PA/Advanced Practice Nurse/Resident Physician. I agree with the documented findings, disposition and treatment plan as described except to the extent set forth below.
[2016-12-03] MEDS: *HR* HYDROmorphone (PF) 1 MG/ML SYRINGE IVP PRN ×2 (10:53→16:54)
[2016-12-03] MEDS: MetroNIDAZOLE 500 MG/100 ML 500 MG/100 ML BAG IVPB SCH ×2 (11:05→16:47)
[2016-12-03 12:55] LABS: Basophils # 0.1 K/mcL (0.0-0.2); Basophils % 0.8 %; Eosinophils # 0.3 K/mcL (0.0-0.6); Eosinophils % 3.3 %; Hematocrit 30.3 % (37.5-50.1); Hemoglobin 9.4 g/dL (12.9-16.9); Immature Granulocytes % 0.4 % (0-4); Lymphocytes # 2.1 K/mcL (0.6-4.6); Lymphocytes % 23.4 %; Mean Corpuscular Hemoglobin 25.6 pg (28.0-33.3); Mean Corpuscular Volume 82.6 fL (83.0-100.0); Monocytes # 0.7 K/mcL (0.0-1.3); Monocytes % 7.8 %; Neutrophils # 5.9 K/mcL (1.6-8.9); Platelet Count 256 K/mcL (140-400); Red Blood Count 3.67 M/mcL (4.19-5.50); Red Cell Distribution Width 14.5 % (11.5-14.5); Segmented Neutrophils % 64.3 %
[2016-12-03] MEDS ORDERED: *HR* Midazolam HCl 5 MG/5 ML VIAL IVP ONE (14:53)
[2016-12-03] MEDS ORDERED: *HR* FentaNYL (PF) 100 MCG/2 ML VIAL ONE (14:53)
[2016-12-03] MEDS ORDERED: *HR* FentaNYL (PF) 100 MCG/2 ML VIAL IVP PRN (15:18)
[2016-12-03] MEDS ORDERED: *HR* Midazolam HCl 5 MG/5 ML VIAL IVP PRN (15:18)
[2016-12-03] MEDS ORDERED: Simethicone 40 MG/0.6 ML MLS IR ONE (15:18)
[2016-12-03] MEDS ORDERED: Ondansetron 4 MG/2 ML VIAL IVP PRN (18:31)
[2016-12-03 18:59] LABS: Basophils # 0.1 K/mcL (0.0-0.2); Basophils % 0.5 %; Eosinophils % 0.4 %; Hematocrit 26.9 % (37.5-50.1); Hemoglobin 8.6 g/dL (12.9-16.9); Immature Granulocytes % 0.7 % (0-4); Lymphocytes # 1.5 K/mcL (0.6-4.6); Lymphocytes % 14.1 %; Mean Corpuscular Hemoglobin 26.5 pg (28.0-33.3); Mean Corpuscular Volume 82.8 fL (83.0-100.0); Mean Platelet Volume 11.3 fL (9.4-12.4); Monocytes # 0.5 K/mcL (0.0-1.3); Monocytes % 4.5 %; Neutrophils # 8.6 K/mcL (1.6-8.9); Platelet Count 229 K/mcL (140-400); Red Blood Count 3.25 M/mcL (4.19-5.50); Red Cell Distribution Width 14.4 % (11.5-14.5); Segmented Neutrophils % 79.8 %
[2016-12-03] MEDS: Acetaminophen 325 MG TABLET PO PRN (19:54)
--- NOTE | 2016-12-03 21:10 | Gastroenterology Consult Note ---
Date of Encounter: 12/03/16 Time of Encounter: 15:00 - Assessment and plan (1) Lower GI bleed Current Visit: Yes Status: Acute Assessment and plan: Pt with s/p polypectomy with removal of 2 cm pedunculared polyp in rectosigmoid area, now with bleeding. Pt has been using a lot of NSAIDS foor headache for a while. Rec: IV fluids NO NSAIDS Follow H/H Sigmoidoscopy today after 2 tap water enemas - Time Spent With Patient Total time spent is greater than 50% in coordination of care (as documented) at patient's floor/unit and/or counseling patient: GI History of Present Illness - Data of Consult Consult date: 12/03/16 Requesting Physician: Cheikh Sanders MD - Consult Narrative Reason for consult: LGI bleed History of present illness: Mr. Haque is a 35 year old male s/p colon on . Did well for 2 days, on saturday morning noticed briggt red bleeding [place]. December episodes, had some abd cramping. Had CT that showed thickening of rectal wall, feverish felling. NO CP or SOB Past Med Surg Social Fam HX - Past Medical History Medical history: GERD, other Psychiatric history: no psych history - Past Surgical History Surgical History: other (Medical debridements (4) of Joana's necrotizing fasciitis left upper thigh (7surgeries). Colonoscopy. Tonsillectomy adenoidectomy.) - Social History Smoking Status: Never smoker Smokeless Tobacco Status: No Alcohol use: none Drug use: marijuana, other Review of Systems: PER [facility]. NO CP or sob, some weaknes, no chnage in coor of urine or eyes. No joint pains. No hx of depression - Constitutional Vitals: Temp Pulse Resp BP Pulse Ox 97.9 F 93 14 106/65 96 12/03/16 19:38 12/03/16 19:38 12/03/16 19:38 12/03/16 19:38 12/03/16 19:38 - Head Head exam: Present: atraumatic, normocephalic - Eye Eye exam: Present: conjunctival injection, sclera anicteric - Neck Neck exam general surgery: Present: supple - Respiratory Additional comments: NO wheezing - Cardiovascular Cardiovascular exam: Present: +S1, +S2 - GI/Abdominal Additional comments: soft, no tanderness - Extremities Exam Extremities exam: Present: warm Additional comments: no cyanosis - Skin Skin exam: Present: dry, warm Results - Labs CBC & Chem 7: 12/03/16 18:44 12/03/16 04:10 Labs: Last Result Calcium 8.2 mg/dL (8.6-10.8) L 12/03/16 04:10 Entire Visit Hgb 8.6 g/dL (12.9-16.9) L 12/03/16 18:44 Hct 26.9 % (37.5-50.1) L 12/03/16 18:44 PT 12.4 Seconds (9.4-12.1) H 12/03/16 04:10 Total Bilirubin 0.3 mg/dL (0.2-1.2) 12/03/16 04:10 AST 17 Units/L (5-34) 12/03/16 04:10 ALT 26 Units/L (0-55) 12/03/16 04:10 - ABG ABG results: PT/INR, D-dimer PT 12.4 Seconds (9.4-12.1) H 12/03/16 04:10 Consult Discharge Plan - Plan Referrals: NO,PCP [Primary Care Provider] -
[2016-12-04] MEDS: MetroNIDAZOLE 500 MG/100 ML 500 MG/100 ML BAG IVPB SCH ×2 (00:20→08:50)
[2016-12-04 00:47] LABS: Basophils # 0.1 K/mcL (0.0-0.2); Basophils % 0.5 %; Eosinophils # 0.1 K/mcL (0.0-0.6); Eosinophils % 1.1 %; Hematocrit 24.5 % (37.5-50.1); Hemoglobin 7.9 g/dL (12.9-16.9); Immature Granulocytes % 0.5 % (0-4); Lymphocytes # 1.9 K/mcL (0.6-4.6); Lymphocytes % 18.6 %; Mean Corpuscular HGB Conc 32.2 g/dL (31.6-35.5); Mean Corpuscular Hemoglobin 26.4 pg (28.0-33.3); Mean Corpuscular Volume 81.9 fL (83.0-100.0); Mean Platelet Volume 11.3 fL (9.4-12.4); Monocytes # 0.7 K/mcL (0.0-1.3); Monocytes % 6.8 %; Neutrophils # 7.4 K/mcL (1.6-8.9); Platelet Count 216 K/mcL (140-400); Red Blood Count 2.99 M/mcL (4.19-5.50); Red Cell Distribution Width 14.6 % (11.5-14.5); Segmented Neutrophils % 72.5 %
[2016-12-04 01:02] LABS: BUN/Creatinine Ratio 18 (6-26); Blood Urea Nitrogen 12 mg/dL (8-26); Calcium 8.1 mg/dL (8.6-10.8); Carbon Dioxide 20 mEq/L (19-29); Chloride 110 mEq/L (98-109); Glucose 102 mg/dL (70-99); Osmolality,Calculated 288 (280-300); Potassium 3.8 mEq/L (3.5-4.5); Sodium 139 mEq/L (136-145); eGFR For African Americans > 60 (> 60); eGFR For Non-African Americans > 60 (> 60)
[2016-12-04] MEDS: *HR* HYDROmorphone (PF) 1 MG/ML SYRINGE IVP PRN ×2 (01:18→06:24)
[2016-12-04] MEDS: 0.9 % Sodium Chloride 1,000 ML IVC SCH ×3 (01:19→08:49)
[2016-12-04 05:59] LABS: Basophils # 0.1 K/mcL (0.0-0.2); Basophils % 0.5 %; Eosinophils # 0.1 K/mcL (0.0-0.6); Eosinophils % 0.9 %; Hematocrit 25.2 % (37.5-50.1); Immature Granulocytes % 1.1 % (0-4); Lymphocytes # 1.7 K/mcL (0.6-4.6); Lymphocytes % 18.1 %; Mean Corpuscular HGB Conc 31.7 g/dL (31.6-35.5); Mean Corpuscular Hemoglobin 26.1 pg (28.0-33.3); Mean Corpuscular Volume 82.1 fL (83.0-100.0); Mean Platelet Volume 11.1 fL (9.4-12.4); Monocytes # 0.6 K/mcL (0.0-1.3); Monocytes % 6.5 %; Neutrophils # 6.9 K/mcL (1.6-8.9); Platelet Count 225 K/mcL (140-400); Red Blood Count 3.07 M/mcL (4.19-5.50); Red Cell Distribution Width 14.6 % (11.5-14.5); Segmented Neutrophils % 72.9 %
[2016-12-04 06:01] LABS: INR 1.2; Prothrombin Time 13.1 Seconds (9.4-12.1)
[2016-12-04 06:03] LABS: Activated Partial Thrombo Time 28.2 Seconds (26.0-36.0)
[2016-12-04 07:18] VITALS: BP 120/72
[2016-12-04] MEDS: Pantoprazole 40 MG VIAL IVP SCH (08:50)
--- NOTE | 2016-12-04 09:51 | Discharge Summary ---
Date of Encounter: 12/04/16 Time of Encounter: 09:49 - Discharge Diagnosis (1) Lower GI bleed Priority: Primary Status: Acute (2) Status post colonoscopy with polypectomy Priority: Secondary Status: Acute (3) Ileitis Priority: Secondary Status: Acute (4) Toothache Priority: Secondary Status: Acute (5) Post-polypectomy bleeding Priority: Secondary Status: Acute - Discharge Medications Prescriptions: Docusate [Colace] 100 mg PO BID PRN #60 capsule PRN Reason: Constipation Ferrous Sulfate 324 mg PO BID #60 tablet. Home Medications: Omeprazole [PriLOSEC] 20 mg PO DAILY 11/27/16 [History] Docusate [Colace] 100 mg PO BID PRN #60 capsule 12/04/16 [Rx] Ferrous Sulfate 324 mg PO BID #60 tablet. 12/04/16 [Rx] Allergies/Adverse Reactions: Allergies No Known Allergies Allergy (Verified 12/04/16 09:36) Date of admission: 12/02/16 23:28 Primary care physician: PCP NO - Patient Status Disposition: Home, Self-Care Condition: Good Functional capacity at discharge: independent ambulation Overall status at discharge: patient is back to baseline - Discharge Instructions Follow Up With: Jazzmine Aldridge DO [Resident] - 12/14/16 3:40 pm Kyle Carter MD [Partnered Physician] - Additional Instructions: Avoid NSAIDs. Use Tylenol for pain. Return to the hospital for total bleeding recurs. - Diet and Activity Activity: resume usual activities as tolerated Diet: advance to your usual diet Hospital course: Mr. Haque is a 35 year old male was admitted to [facility] via the emergency room when he presented with reports of blood in his stool. Scheduled a routine, screening colonoscopy was completed 4 days prior to admission. During the procedure 2 polyps were removed (5 mm bleeding polyp in the sigmoid colon and a 20 mm nonbleeding polyp at the rectum-sigmoid colon). Diverticulosis in the sigmoid colon was also documented as well as evidence for ileitis with aphthous ulcerations found in the terminal ileum. Immediate postoperative course was unremarkable. The patient however noted approximately 2 hours prior to his arrival to the emergency department with feeling of rectal urgency. When he had a movement of his bowels he found bright red blood in the stool. Due to the urgency he had 2 additional bowel movements each with blood. Came to the emergency room for further evaluation. He had some anxiety with these events associated with mild shortness of breath and racing heart. He denied taking any daily or intermittent blood thinning agents. However due to very painful dental and periodontoid disease admits to taking ibuprofen otc excessively on a daily basis. The patient was admitted to the medical service. His initial hemoglobin was 12.7. He was treated with IV fluids. He had a sigmoidoscopy done yesterday which found large amounts of blood in the distal colon and rectum with bleeding polypectomy sites from previous colonoscopy. He had 2 clips placed which effectively stop the bleeding and he tolerated the procedure well. Today he complains of no abdominal pain. He had 2 normal, nonbloody bowel movements this morning. His hemoglobin is 8.0 which is stable from yesterday. He did not receive a blood transfusion as his hemoglobin stayed above 7.0. His hemoglobin and hematocrit stabilized post sigmoidoscopy. His vital signs are within normal range. He has been tolerating a regular diet. He has been treated empirically with Cipro and Flagyl IV during this hospitalization and the antibiotics will be stopped on discharge as there is no evidence for colitis. We will obtain iron studies B12 and folate this morning and recommend that these should be followed up with his primary care physician. We will refer Ronny for follow-up with gastroenterology and he will be discharged home in a stable condition. He was advised to avoid NSAIDs and use Tylenol for pain instead. - Time Spent with Patient Total time spent providing and/or coordinating discharge services: - Constitutional Vitals: Temp Pulse Resp BP Pulse Ox 98.1 F 88 16 120/72 96 12/04/16 07:17 12/04/16 07:17 12/04/16 07:17 12/04/16 07:12/04/16 07:17 General appearance: Present: cooperative, A&O X 3, morbidly obese, no acute distress, answers questions appropriately - Respiratory Respiratory exam: Present: CTAB. Absent: accessory muscle use, rales, rhonchi, wheezes - Cardiovascular Cardiovascular exam: Present: RRR, +S1, +S2. Absent: diastolic murmur, gallop, rubs, systolic murmur - GI/Abdominal GI/Abdominal exam: Present: normal bowel sounds, soft, no peritoneal signs. Absent: distended, tenderness - Skin Skin exam: Present: dry, intact - VTE Documentation of Mechanical Device: Graduated compression elastic hosiery
[2016-12-04 09:53] LABS: % Iron Saturation 12 % (20-55); Iron 38 mcg/dL (65-175); Transferrin 220 mg/dL (174-364)
[2016-12-04 10:29] LABS: Folate 13.7 ng/mL (7.0-31.4)
[2016-12-04 10:45] LABS: Ferritin 42 ng/ml (22-275)
[2016-12-04] MEDS: Acetaminophen 325 MG TABLET PO PRN (11:27)
--- NOTE | 2016-12-04 11:43 | Gastroenterology Progress Note ---
Date of Encounter: 12/04/16 Time of Encounter: 10:30 - Assessment and plan (1) Lower GI bleed Status: Acute Assessment and plan: Colonoscopy 12/03/2016 with mucosal ulceration and bleeding from postpolypectomy site in the recto-sigmoid colon. Two clips placed and no bleeding noted at end of procedure. Follow up in GI office in 4 weeks. - Time Spent With Patient Total time spent is greater than 50% in coordination of care (as documented) at patient's floor/unit and/or counseling patient: - Subjective Interval history: Pt is sitting up in bed and reports feeling well. He denies any further rectal bleeding or abdominal pain. - Constitutional Vitals: Temp Pulse Resp BP Pulse Ox 98.1 F 88 16 120/72 96 12/04/16 07:17 12/04/16 07:17 12/04/16 07:17 12/04/16 07:17 12/04/16 07:17 General appearance: Present: cooperative, A&O X 3, no acute distress, answers questions appropriately - Head Head exam: Present: atraumatic, normocephalic - Eye Eye exam: Present: normal appearance, sclera anicteric - ENT ENT exam: Present: mucous membranes moist - Neck Neck exam general surgery: Present: normal inspection, trachea midline - Respiratory Respiratory exam: Present: CTAB. Absent: rales, rhonchi - Cardiovascular Cardiovascular exam: Present: RRR, +S1, +S2 - GI/Abdominal GI/Abdominal exam: Present: soft, no peritoneal signs. Absent: distended, firm , guarding, tenderness - Rectal Rectal exam: Present: deferred - Extremities Exam Extremities exam: Present: warm - Neurological Exam Neurological exam: Present: no focal deficits - Psychiatric Psychiatric exam: Present: normal affect, normal mood - Skin Skin exam: Present: dry, intact, normal color, warm Results - Labs CBC & Chem 7: 12/04/16 05:27 12/04/16 00:32 Labs: Last Result Calcium 8.1 mg/dL (8.6-10.8) L 12/04/16 00:32 Iron 38 mcg/dL (65-175) L 12/04/16 05:27 % Saturation 12 % (20-55) L 12/04/16 05:27 Transferrin 220 mg/dL (174-364) 12/04/16 05:27 Ferritin 42 ng/ml (22-275) 12/04/16 05:27 Vitamin B12 404 pg/mL (213-816) 12/04/16 05:27 Folate 13.7 ng/mL (7.0-31.4) 12/04/16 05:27 Entire Visit Hgb 8.0 g/dL (12.9-16.9) L 12/04/16 05:27 Hct 25.2 % (37.5-50.1) L 12/04/16 05:27 PT 13.1 Seconds (9.4-12.1) H 12/04/16 05:27 Ferritin 42 ng/ml (22-275) 12/04/16 05:27 Total Bilirubin 0.3 mg/dL (0.2-1.2) 12/03/16 04:10 AST 17 Units/L (5-34) 12/03/16 04:10 ALT 26 Units/L (0-55) 12/03/16 04:10 Folate 13.7 ng/mL (7.0-31.4) 12/04/16 05:27 - ABG ABG results: PT/INR, D-dimer PT 13.1 Seconds (9.4-12.1) H 12/04/16 05:27 - VTE Documentation of Mechanical Device: Graduated compression elastic hosiery Consult Discharge Plan - Plan Instructions: Rectal Bleeding (DC), Gastroesophageal Reflux Disease (DC), Capsule Endoscopy (DC), Gastric Polyps (DC) Additional Instructions: Avoid NSAIDs. Use Tylenol for pain. Return to the hospital for total bleeding recurs. Referrals: Jazzmine Aldridge DO [Resident] - 12/14/16 3:40 pm Kyle Carter MD [Partnered Physician] - 12/31/16 3:20 pm Prescriptions: Docusate [Colace] 100 mg PO BID PRN #60 capsule PRN Reason: Constipation Ferrous Sulfate 324 mg PO BID #60 tablet.
== END 2016-12-04 11:39 | disposition home or self-care (01) ==
LOC: EMEROO 19:37 → 3ANU 19:37 → SUATTDRO 23:28 → 3ANU 12-03 00:11
PROVIDERS: ADMIT Internal Medicine; ATTEND Internal Medicine